=== PATIENT | male | born 2000 | race Caucasian/White ===

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

== ENCOUNTER 2020-11-10 08:26 | Emergency (ER) | payer SELFPAY ==
[2020-11-10 08:30] VITALS: BP 148/81; PULSE 82; RESP 16; TEMP 36.8; O2SAT 99
[2020-11-10 08:43] LABS: Bilirubin Negative (Negative); Blood Trace-intact (Negative); Clarity Clear (Clear); Glucose Negative (Negative); Ketones Negative (Negative); Leukocyte Esterase Negative (Negative); Nitrite Negative (Negative); Specific Gravity >= 1.030 (1.005-1.025); Urobilinogen 0.2 EU/dL (Up TO 0.2)
--- NOTE | 2020-11-10 08:43 | W.ED.GENAD ---
Discharge Plan Disposition Patient Disposition: HOME Condition: Stable Discharge Details Clinical Impression: Bilateral kidney stones Primary Care Provider: Jose Carlos Champagne ED Provider: Lori Demarco Home Meds and New Rx's Prescriptions: New tamsulosin 0.4 mg capsule 0.4 mg PO DAILY 7 Days Qty: 7 RF: 0 ibuprofen 800 mg tablet 800 mg PO Q8H PRN (Reason: pain) Qty: 20 RF: 0 Discharge Instructions Instructions: Kidney Stones (ED), How to Strain Your Urine (ED) Additional Instructions: Follow up with primary care provider in 3-5 days. Return to ED sooner if any worsening or concerns. Increase oral fluids. Please take Tylenol or Ibuprofen with food every 4-6 hours as needed for pain and swelling. Strain all your urine. Please take medications as directed do not take any extra ibuprofen on top of the 800 mg. Be careful taking the tamsulosin or Flomax it can make you dizzy if it makes you dizzy please stop taking it Please follow-up with urology in the next 1 to 2 weeks. Referrals: Karin Mckee DNP [NURSE PRACTITIONER] - 1 week Jose Carlos Champagne MD [Primary Care Provider] - Discharge Data Discharge Date/Time-TO BE ENTERED AT DEPARTURE: 11/10/20 11:34 Medical Decision Making 20-year-old male presents to the ER with left lower quadrant abdominal pain radiating to the flank associated diarrhea and urinary head the last few months. At this time work-up including CBC, CMP, urinalysis. Urinalysis shows specific gravity greater than 1030, protein 30, - for ketones, trace blood negative for nitrites negative for leukocyte. Urine micro is pending at this time. CBC shows no evidence of leukocytosis CMP is largely within normal limits BUN/creatinine within normal limits. CT abdomen pelvis without contrast will be ordered to rule out kidney stone due to hematuria. Differential diagnosis includes but not limited to kidney stone, inguinal hernia, gastroenteritis, colitis, diverticulitis. EXAM: CT ABDOMEN PELVIS WO CLINICAL HISTORY: LLQ abd Pain, Hematuria, R/O Kidney stone. FINDINGS: ABDOMEN: Lung Bases: Normal where visualized. Liver: Normal density. No measurable mass. Gallbladder and biliary tract: No radiodense calculus or biliary ductal dilation. Pancreas: Normal density, no abnormal calcifications or inflammatory process. Spleen: Normal. Kidneys: Normal size, contour and axis.There are two 2 cm nonobstructing stones in the right kidney. There is a 2 mm nonobstructing left renal stone. No hydronephrosis. No masses seen. Adrenal glands: No mass is seen. Lymph nodes: Within normal limits. Abdominal Aorta: Abdominal portion non-dilated. PELVIS: Bladder:Symmetric distention, no gross wall thickening. Bowel: No obstruction or bowel wall thickening. Status post appendectomy. There is a moderate amount of retained stool throughout the colon Peritoneal cavity: No ascites, collection or mesenteric inflammatory response. No free air. Reproductive organs: Within normal limits. Bones: Within normal limits. Soft Tissues: Within normal limits. IMPRESSION: Bilateral nephrolithiasis. No hydronephrosis. Results of this exam have been verbally communicated with provider. CT scan shows bilateral nonobstructing stones as noted in radiology report discussed results with patient who verbalized understanding. Strainer was provided to patient and referral for urology follow-up. Tamsulosin was prescribed and 800 mg ibuprofen as needed. Discussed strict return instructions including to return or be seen sooner decreased urination and or fever vomiting verbalized understanding. HPI General Mode of arrival: ambulatory. Date/Time Provider Initiated Documentation: 11/10/20 08:27. Limitations to Documentation: no limitations. Information obtained by: patient. HPI Narrative: 20-year-old male presents to the ER chief complaint of left lower quadrant abdominal pain which radiates into his left flank associated with diarrhea which has been intermittent for the past few months. Only past surgical history is appendicitis 2019. He reports urinary hesitancy. Denies any fever chills. He reports that applying warm compresses makes it better. No other associated symptoms. Related Data Home Medications Medication Instructions Recorded Confirmed ibuprofen 800 mg PO Q8H PRN #20 tab 11/10/20 tamsulosin 0.4 mg PO DAILY 7 Days #7 cap 11/10/20 Previous Rx's Medication Instructions Recorded ibuprofen 800 mg PO Q8H PRN #20 tab 11/10/20 tamsulosin 0.4 mg PO DAILY 7 Days #7 cap 11/10/20 Allergies Allergy/AdvReac Type Severity Reaction Status Date / Time No Known Allergies Allergy Verified 11/10/20 08:41 General Stated Complaint: Abd Prob TRUPTI: 3 Review of Systems Narrative: Constitutional: Negative for weight loss, alert and oriented, well groomed, normal body habitus, appears comfortable. HEENT: Denies trauma, headaches, blurry vision, nasal discharge, sore throat, trouble swallowing. Chest: Denies chest pain, palpitations, irregular rhythm, hypertension. Respiratory: Denies Shortness of breath, cough, hemoptysis. GI: Denies nausea, vomiting, constipation. Positive abdominal pain, positive diarrhea. : Denies dysuria, hematuria, flank pain, rectal bleeding. Positive urinary hesitancy. Neuro: Denies dizziness, blurry vision, weakness, syncope, headache or facial numbness. Hematologic: Denies easy bruising, intolerance to heat or cold, hair loss. [facility] Surgical History Acute appendicitis with localized peritonitis Status post laparoscopic appendectomy Social History Smoking/Tobacco Use Status: Never Smoking risk assessment performed?: Yes Alcohol Intake: never Drug use: Never Substance use type: does not use Do you feel safe at home: Yes Do you feel safe in your relationship?: Yes Exam Narrative Exam Narrative: Constitutional: Alert and oriented x3. Appears stated age. Normal body habitus. Head: Normocephalic, no trauma. Eyes: Pupils PERRLA, Red reflex noted, EOM's intact. Eyelids symmetrical without lesions, discharge, or swelling. ENT: Bilateral TM's WNL, External ear normal to inspection, no mastoid TTP, swelling, or erythema, Nasal turbinates WNL, no nasal discharge. Normal dentition, Posterior pharynx WNL, no exudate. Chest: RRR, Normal S1, S2, distal pulses intact. Resp: Lungs clear to auscultation bilaterally, no wheezes, rales, or rhonchi. Abdomen: Soft, nondistended tender left lower quadrant with palpation no masses palpated. Bowel sounds within normal limits all 4 quadrants. No CVA tenderness bilaterally. Musculoskeletal: Normal gait, 5/5 strength to all four extremities. Skin: No suspicious rashes or lesions. Capillary refill less than 2 sec. Neurologic: Cranial nerves II-XII intact. Alert and oriented x 3. DTR's intact. Hematologic/Lymphatic: No ecchymosis, no lymphadenopathy. Course Vital Signs Vital signs: Vital Signs Temperature 36.8 C 11/10/20 08:30 Pulse 82 11/10/20 08:30 Respiratory Rate 16 11/10/20 08:30 Blood Pressure 148/81 H 11/10/20 08:30 Pulse Oximetry 99 11/10/20 08:30 Temperature 36.8 C 11/10/20 08:30 Temperature Source Skin 11/10/20 08:30 Pulse 82 11/10/20 08:30 Respiratory Rate 16 11/10/20 08:30 Respiratory Effort 11/10/20 08:42 Blood Pressure 148/81 H 11/10/20 08:30 Blood Pressure Position Sitting 11/10/20 08:30 Pulse Oximetry 99 11/10/20 08:30 Oxygen Delivery Method Room Air 11/10/20 08:30 Oxygen Flow Rate 0 11/10/20 08:30 Pain Level 3 11/10/20 08:30
--- NOTE | 2020-11-10 08:45 | DI.CT_ITS ---
Exam(s) CT ABDOMEN PELVIS WO EXAM: CT ABDOMEN PELVIS WO CLINICAL HISTORY: LLQ abd Pain, Hematuria, R/O Kidney stone. TECHNIQUE: Imaging Protocol: Axial computed tomography images with coronal and sagittal reformatted images were created and reviewed. FINDINGS: ABDOMEN: Lung Bases: Normal where visualized. Liver: Normal density. No measurable mass. Gallbladder and biliary tract: No radiodense calculus or biliary ductal dilation. Pancreas: Normal density, no abnormal calcifications or inflammatory process. Spleen: Normal. Kidneys: Normal size, contour and axis.There are two 2 cm nonobstructing stones in the right kidney. There is a 2 mm nonobstructing left renal stone. No hydronephrosis. No masses seen. Adrenal glands: No mass is seen. Lymph nodes: Within normal limits. Abdominal Aorta: Abdominal portion non-dilated. PELVIS: Bladder:Symmetric distention, no gross wall thickening. Bowel: No obstruction or bowel wall thickening. Status post appendectomy. There is a moderate amount of retained stool throughout the colon Peritoneal cavity: No ascites, collection or mesenteric inflammatory response. No free air. Reproductive organs: Within normal limits. Bones: Within normal limits. Soft Tissues: Within normal limits. IMPRESSION: Bilateral nephrolithiasis. No hydronephrosis. Results of this exam have been verbally communicated with provider. RADIATION DOSE DELIVERED: 447.24mGy.cm Total DLP DATA REPOSITORY: All CT scans at this facility are submitted to the National Radiology Data Registry (NRDR) Dose Index Registry (DIR) with the [employer] ([employer]). RADIATION OPTIMIZATION: All CT scans at this facility use at least one of these dose optimization te chniques: automated exposure control; mA and/or kV adjustment per patient size (includes targeted exa ms where dose is matched to clinical indication); or iterative reconstruction.
[2020-11-10 08:53] LABS: Bacteria Rare HPF (Negative); C & S Indicated? No; Casts Negative LPF (Negative); Crystals Negative HPF (Negative); Epithelial Cells Rare HPF (Negative); Mucus Trace (Negative); WBC 0-2 HPF (0-5)
[2020-11-10 09:02] LABS: Abs Immature Grans 0.01 10^3/uL (0.0-0.06); Absolute Basophil Count 0.02 10^3/uL (0.0-0.2); Absolute Eosinophil Count 0.35 10^3/uL (0.0-0.7); Absolute Lymphocyte Count 1.65 10^3/uL (1.2-3.4); Absolute Monocyte Count 0.57 10^3/uL (0.1-0.8); Absolute Neutrophil Count 2.93 10^3/uL (1.2-6.7); Basophils % 0.4; Eosinophils % 6.3; HCT 48.4 % (40.0-50.0); HGB 16.7 g/dL (13.5-17.5); Immature Grans % 0.2; Lymphocytes % 29.8; MCH 29.5 pg (27.0-33.0); MCHC 34.5 % (32.0-36.0); MCV 85.5 fL (80-95); MPV 10.3 fL (8.0-11.0); Monocytes % 10.3; Nucleated RBC 0 %; Platelet Count 169 10^3/uL (130-400); RBC 5.66 10^6/uL (4.36-5.78); RDW 11.9 % (11.8-14.1); WBC 5.53 10^3/uL (4.4-10.8)
[2020-11-10 09:14] LABS: ALT 29 U/L (16-63); AST 30 U/L (15-37); Albumin 4.8 g/dL (3.4-5.0); Alkaline Phosphatase 65 U/L (46-116); Anion Gap 8.6 mmol/L (3-11); BUN 13 mg/dL (7-18); Bilirubin, Total 0.6 mg/dL (0.2-1.0); CO2 29.4 mmol/L (21.0-32.0); CREATININE 0.9 mg/dL (0.70-1.30); Calcium 9.6 mg/dL (8.5-10.1); Chloride 103 mmol/L (98-107); Glucose 103 mg/dL (74-106); Lipase 95 U/L (73-393); Potassium 3.9 mmol/L (3.5-5.1); Sodium 141 mmol/L (136-145); Total Protein 8.6 g/dL (6.4-8.2)
[2020-11-10 10:00] VITALS: BP 121/66; PULSE 67; RESP 16; TEMP 37.2; O2SAT 100
[2020-11-10] MEDS: Ketorolac 15 MG/ML VIAL IVP (11:23)
[2020-11-10] MEDS: Ondansetron O.D.T. 4 MG TABEF PO (11:24)
[2020-11-10] MEDS: Normal Saline Flush 10 ML SYR IVP (11:24)
[2020-11-10 11:26] VITALS: BP 120/52; PULSE 66; RESP 14; TEMP 37.1; O2SAT 100
== END 2020-11-10 11:34 | disposition home or self-care (01) ==
PROVIDERS: Emergency Provider Registered Nurse Emergency; PCP Pediatrics
DX: N20.0 Calculus of kidney (principal)
CPT/HCPCS: 36415; 80053; 83690; 96374; 99284; 74176; 81003; 81015; 85025; 99283; J1885